=== PATIENT | female | born 1975 | race Caucasian/White ===

== ENCOUNTER 2018-07-19 10:52 | Emergency (ER) | payer OTHER ==
[~2018-07-19] VITALS: Ht 167.6 cm; Wt 116.8 kg
[2018-07-19 11:13] VITALS: BP 129/62; TEMP 97.7
[2018-07-19] MEDS ORDERED: MONODOX100 PO (14:07)
[2018-07-19] MEDS ORDERED: CEPHALEXIN500 M1 PO (14:07)
[2018-07-19 14:30] VITALS: PULSE 85
== END 2018-07-19 14:25 | disposition home or self-care (01) ==
LOC: COL.ER 10:52
DX: L02.511 Cutaneous abscess of right hand (principal); L03.113 Cellulitis of right upper limb; E11.9 Type 2 diabetes mellitus without complications; Z90.49 Acquired absence of other specified parts of digestive tract; Z90.89 Acquired absence of other organs; Z98.890 Other specified postprocedural states

== ENCOUNTER → 2019-07-09 | Outpatient (CLI) | payer OTHER ==
[~2019-07-09] MED LIST: CEPHALEXIN500 M1 PO; MONODOX100 PO
== END ==
LOC: MC.RAD 07:59
DX: Z12.31 Encounter for screening mammogram for malignant neoplasm of breast (principal)

== ENCOUNTER 2020-04-15 09:00 | Outpatient (RCR) | payer OTHER | END 2020-04-15 09:46 | disposition home or self-care (01) | LOC: MKS.ESL.PT 09:00 | DX: M79.2 Neuralgia and neuritis, unspecified (principal) ==

== ENCOUNTER → 2022-01-15 | Outpatient (CLI) | payer OTHER | LOC: COL.RAD 12:45 | DX: N94.89 Other specified conditions associated with female genital organs and menstrual cycle (principal) ==